=== PATIENT | male | born 1930 | race Caucasian/White ===

== ENCOUNTER 2017-12-22 22:39 | Observation (INO) ==
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
[2017-12-23 00:52] LABS: Amphetamine Screen,Urine Neg (Neg); Barbiturate Screen,Urine Neg (Neg); Cannabinoid Screen,Urine Neg (Neg); Cocaine Screen,Urine Neg (Neg); Opiate Screen,Urine Neg (Neg)
[2017-12-23 00:56] LABS: Baso # (Auto) 0.2 th/mm3 (0.0-0.2); Baso % (Auto) 2.8 % (0.0-2.0); Eos % (Auto) 0.2 % (0.0-4.0); Hemoglobin 11.7 gm/dL (13.0-17.0); Lymph # (Auto) 1.1 th/mm3 (1.0-4.8); Lymph % (Auto) 13.5 % (9.0-44.0); Mean Corpuscular HGB Conc 33.5 % (32.0-36.0); Mean Corpuscular Hemoglobin 29.7 pg (27.0-34.0); Mean Corpuscular Volume 88.7 fL (80.0-100.0); Mean Platelet Volume 8.5 fL (7.0-11.0); Mono # (Auto) 0.6 th/mm3 (0.0-0.9); Mono % (Auto) 7.5 % (0.0-8.0); Neut # (Auto) 6.3 th/mm3 (1.8-7.7); Platelet Count 275 th/mm3 (150-450); Red Blood Count 3.95 mil/mm3 (4.50-5.90); Red Cell Distribution Width 14.5 % (11.6-17.2); White Blood Count 8.3 th/mm3 (4.0-11.0)
[2017-12-23 01:06] LABS: Alanine Aminotransferase 13 U/L (12-78); Albumin 3.8 g/dL (3.4-5.0); Anion Gap 5 meq/L (5-15); Aspartate Aminotransferase 11 U/L (15-37); Blood Urea Nitrogen 20 mg/dL (7-18); Calcium 8.8 mg/dL (8.5-10.1); Carbon Dioxide 30.2 meq/L (21.0-32.0); Chloride 109 meq/L (98-107); Glomerular Filtration Rate 58 mL/min (>89); Glucose,Random 94 mg/dL (74-106); Potassium 3.7 meq/L (3.5-5.1); Sodium 144 meq/L (136-145)
[2017-12-23 01:16] LABS: Alkaline Phosphatase 83 U/L (45-117); Thyroid Stimulating Hormone 0.261 uIU/mL (0.358-3.740); Total Protein 7.3 g/dL (6.4-8.2)
[2017-12-23] MEDS ORDERED: LORazepam 1 MG Tablet PO ONE (01:18)
[2017-12-23] MEDS ORDERED: amLODIPine 10 MG Tablet PO ONE (15:05)
--- NOTE | 2017-12-23 16:46 | ED ---
HPI - Psych - General Source: patient, family Mode of arrival: other (in soft restraints) Limitations: altered mental status - History of Present Illness MD complaint: altered mental status - General Chief Complaint: Psychiatric Symptoms Stated Complaint: psych eval/[facility] Time Seen by Provider: 12/23/17 14:49 - History of Present Illness HPI Narrative: This patient is an elderly, , male who presents under Galvez act this facility. The Galvez act was requested by his daughter. The patient resides with his however, she recently fell and fractured her hip. She is a patient this facility. Her daughter moved into the house to care for him but states that he is be becoming aggressive at night. She no longer feels safe with him there and would like him placed. This gentleman has not been previously seen at this facility. Reviewed electronic medical record, labs, discuss case with staff. Patient was evaluated in his room in the ED main. He was found lying on his stretcher with his wrists in soft 2 point restraints. Staff advises was due to his incessant wandering and his fall risk. Patient is awake and alert however he was oriented to self only. His speech is clear and logical however he becomes disorganized and confused easily. He is grossly confused and unable to provide much history. He was able to tell me that he spent time in the [employer] however, he is unable to relay what he did for a living stating, "I do not remember". His mood and affect are anxious. (Mariaelena Torrez) - Related Data Home Medications Medication Instructions Recorded Confirmed Unable to Obtain Home Meds 12/22/17 12/22/17 Allergies Allergy/AdvReac Type Severity Reaction Status Date / Time No Allergy Information Allergy Unverified 12/22/17 23:20 Available [facility] - History History Provided By: Law Enforcement - Medical History Medical History: Medical History (Last Updated 12/22/17 @ 23:16 by Adrienne Franco RN) Medical history unknown Surgical history unknown - Tobacco History Smoking Status: Cognitive impairment - Alcohol History How Often Do You Have a Drink Containing Alcohol: Unable to Obtain - Travel History Recent Travel in the [place] Within the Last 8 Weeks: No Recent Travel Out of the Country Within the Last 8 Weeks: No - Immunization History Tetanus Immunization: Unable to Assess Hx Influenza Vaccine This Season: Unable to Assess Mental Status Examination Appearance: Disheveled Consciousness: Alert Orientation: Person Motor Activity: Other Speech: Slow Language: Other (In adequate, disorganized at times) Fund of Knowledge: Poor Attention and Concentration: Inadequate Memory: Impaired Mood: Anxious Affect: Anxious Thought Process & Associations: Disorganized Thought Content: Other (Grossly confused) Hallucination Type: None Delusion Type: None Suicidal Ideation: No Suicidal Plan: No Suicidal Intention: No Homicidal Ideation: No Homicidal Plan: No Homicidal Intention: No Insight: Poor Judgment: Poor Initial Documented Vital Signs Temperature 97.7 F 12/22/17 23:14 Pulse Rate 60 12/22/17 23:14 Respiratory Rate 18 12/22/17 23:14 Blood Pressure 133/70 12/22/17 23:14 Pulse Oximetry 98 12/22/17 23:14 Last Documented Vital Signs Temperature 98.6 F 12/23/17 04:49 Pulse Rate 44 L 12/23/17 15:51 Respiratory Rate 18 12/23/17 15:51 Blood Pressure 205/84 H 12/23/17 15:51 Pulse Oximetry 98 12/23/17 15:51 MDM - Psych - Diagnosis (1) Dementia Status: Acute - Lab Data Result diagrams: 12/23/17 00:00 12/23/17 00:00 - MDM Narrative Medical decision making narrative: There is no indication that this patient is internally stimulated or in any way suffering from a mental illness. 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 It is unlikely that he receive any therapeutic benefit from an inpatient admission at this facility. I presented this patient to Dr. Castrejon, who saw this patient, concurred with my assessment and has lifted the Galvez act. Medical staff will work on appropriate placement in a dementia unit. (Mariaelena Torrez) - Lab Data Lab Results 12/23/17 12/23/17 12/23/17 Range/Units 00:00 00:00 00:00 WBC 8.3 (4.0-11.0) th/mm3 RBC 3.95 L (4.50-5.90) mil/mm3 Hgb 11.7 L (13.0-17.0) gm/dL Hct 35.0 L (39.0-51.0) % MCV 88.7 (80.0-100.0) fL MCH 29.7 (27.0-34.0) pg MCHC 33.5 (32.0-36.0) % RDW 14.5 (11.6-17.2) % Plt Count 275 (150-450) th/mm3 MPV 8.5 (7.0-11.0) fL Neut % (Auto) 76.0 H (16.0-70.0) % Lymph % (Auto) 13.5 (9.0-44.0) % [place] % (Auto) 7.5 (0.0-8.0) % Eos % (Auto) 0.2 (0.0-4.0) % Baso % (Auto) 2.8 H (0.0-2.0) % Neut # (Auto) 6.3 (1.8-7.7) th/mm3 Lymph # (Auto) 1.1 (1.0-4.8) th/mm3 [place] # (Auto) 0.6 (0.0-0.9) th/mm3 Eos # (Auto) 0.0 (0.0-0.4) th/mm3 Baso # (Auto) 0.2 (0.0-0.2) th/mm3 WBC Differential . Differential Comment Auto diff final Sodium 144 (136-145) meq/L Potassium 3.7 (3.5-5.1) meq/L Chloride 109 H (98-107) meq/L Carbon Dioxide 30.2 (21.0-32.0) meq/L Anion Gap 5 (5-15) meq/L BUN 20 H (7-18) mg/dL Creatinine 1.10 (0.60-1.30) mg/dL Estimated GFR 58 L (>89) mL/min Random Glucose 94 (74-106) mg/dL Calcium 8.8 (8.5-10.1) mg/dL Total Bilirubin 0.4 (0.2-1.0) mg/dL AST 11 L (15-37) U/L ALT 13 (12-78) U/L Alkaline Phosphatase 83 (45-117) U/L Total Protein 7.3 (6.4-8.2) g/dL Albumin 3.8 (3.4-5.0) g/dL TSH 0.261 L (0.358-3.740) uIU/mL Urine Opiates Screen Neg (Neg) Ur Barbiturates Screen Neg (Neg) Ur Amphetamines Screen Neg (Neg) U Benzodiazepines Scrn Neg (Neg) Urine Cocaine Screen Neg (Neg) U Cannabinoids Screen Neg (Neg) Serum Alcohol Less than 3 (0-5) mg/dL
[2017-12-23] MEDS ORDERED: Metoprolol Tartrate 25 MG Tablet PO ONE (17:40)
[2017-12-23] MEDS ORDERED: Temazepam 15 MG Capsule PO PRN (22:45)
[2017-12-23] MEDS ORDERED: Bisacodyl 10 MG Supp RECTAL PRN (22:45)
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
[2017-12-23] MEDS ORDERED: Haloperidol Inj 5 MG/ML Ampul IM ONE (23:49)
[2017-12-24] MEDS: Senna/Docusate Sodium 8.6/50 MG Tablet PO SCH ×2 (08:13→20:29)
[2017-12-24 09:01] LABS: Baso % (Auto) 0.4 % (0.0-2.0); Eos % (Auto) 0.4 % (0.0-4.0); Hematocrit 37.7 % (39.0-51.0); Hemoglobin 12.8 gm/dL (13.0-17.0); Lymph # (Auto) 1.6 th/mm3 (1.0-4.8); Lymph % (Auto) 15.8 % (9.0-44.0); Mean Corpuscular HGB Conc 33.9 % (32.0-36.0); Mean Corpuscular Hemoglobin 29.8 pg (27.0-34.0); Mean Corpuscular Volume 88.2 fL (80.0-100.0); Mean Platelet Volume 7.9 fL (7.0-11.0); Mono # (Auto) 0.8 th/mm3 (0.0-0.9); Mono % (Auto) 7.9 % (0.0-8.0); Neut # (Auto) 7.9 th/mm3 (1.8-7.7); Neut % (Auto) 75.5 % (16.0-70.0); Platelet Count 287 th/mm3 (150-450); Red Blood Count 4.28 mil/mm3 (4.50-5.90); Red Cell Distribution Width 14.7 % (11.6-17.2); White Blood Count 10.4 th/mm3 (4.0-11.0)
[2017-12-24 09:29] LABS: Alanine Aminotransferase 14 U/L (12-78); Albumin 3.7 g/dL (3.4-5.0); Alkaline Phosphatase 86 U/L (45-117); Anion Gap 10 meq/L (5-15); Aspartate Aminotransferase 22 U/L (15-37); Blood Urea Nitrogen 14 mg/dL (7-18); Calcium 9.3 mg/dL (8.5-10.1); Carbon Dioxide 25.8 meq/L (21.0-32.0); Chloride 106 meq/L (98-107); Glomerular Filtration Rate 63 mL/min (>89); Glucose,Random 99 mg/dL (74-106); Potassium 3.3 meq/L (3.5-5.1); Sodium 142 meq/L (136-145); Total Protein 7.4 g/dL (6.4-8.2)
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
[2017-12-24] MEDS: Haloperidol Inj 5 MG/ML Ampul IM PRN (21:24)
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
[2017-12-25] MEDS: Senna/Docusate Sodium 8.6/50 MG Tablet PO SCH ×2 (10:11→20:05)
[2017-12-25] MEDS: QUEtiapine 25 MG Tablet PO SCH ×2 (14:25→20:05)
[2017-12-26] MEDS: Senna/Docusate Sodium 8.6/50 MG Tablet PO SCH ×2 (09:22→20:19)
[2017-12-26] MEDS: QUEtiapine 25 MG Tablet PO SCH ×3 (09:23→20:20)
--- NOTE | 2017-12-26 10:17 | P.PN ---
Subjective Interval history: Follow-up visit dementia with aggressive behavior. Patient seen and examined today. Reports she is doing okay. Patient appears to be more calm. As per nursing, states that patient is more receptive to instructions compared to previous days. Started on Seroquel yesterday. Physical Exam Vital signs: Vital Signs 12/25/17 11:51 12/25/17 12:00 12/25/17 15:35 Temperature 97.7 F 97.5 F L 97.6 F Pulse Rate 70 70 85 Respiratory Rate 18 16 18 Blood Pressure 140/81 114/56 L 164/77 H Pulse Oximetry 97 99 96 12/25/17 20:00 12/26/17 04:00 12/26/17 08:00 Temperature 98.2 F 98.2 F 97.9 F Pulse Rate 80 115 H 69 Respiratory Rate 16 18 16 Blood Pressure 156/65 H 129/86 193/88 H Pulse Oximetry 98 96 97 Intake & Output 12/25/17 12/26/17 12/26/17 18:59 06:59 18:59 Other: # Voids 3 Date of Last Bowel Movement 12/24/17 12/24/17 Narrative: GENERAL: This is a well-nourished, well-developed patient, in no apparent distress. SKIN: Warm and dry. HEENT: Normocephalic. Pupils equal round and reactive. Nose without bleeding. Airway patent. NECK: Trachea midline. Supple. CARDIOVASCULAR: Regular rate and rhythm without murmurs, gallops, or rubs. RESPIRATORY: Clear to auscultation. Breath sounds equal bilaterally. No wheezes , rales, or rhonchi. GASTROINTESTINAL: Abdomen soft, non-tender, nondistended. Bowel Sounds normoactive x4. MUSCULOSKELETAL: Extremities without clubbing, cyanosis, or edema. NEUROLOGICAL: Awake and alert. Confuse. Moves all extremities. Normal speech. Results - Labs CBC & Chem 7: 12/24/17 08:10 12/24/17 08:10 - Procedures None Assessment and Plan - Assessment (1) Total self-care deficit Code(s): R41.89 - Other symptoms and signs involving cognitive functions and awareness Status: Acute (2) Dementia Code(s): F03.90 - Unspecified dementia without behavioral disturbance Status: Acute - Plan Elderly white male (Jhon Caicedo [birth year]) w/ a PMH of Dementia who was initially brought to the ER under [place] Act for violent behavior against Daughter. Dementia: w/ violent behavior, initially under [place] Act for threatening to kill his daughter if she didn't leave his house -S/p eval by Psych, not found to have underlying psych component, recommendation for locked dementia unit, Gal[place] Act lifted. -Pt remains confused, agitated at times. Wanders. Improving -Fall Precautions -Off restraints -Seroquel BID and QHS -Namenda Total Self Care Deficit: Pt unable to care for self, previously living with however currently hospitalized w/ hip fracture, -Case Management assisting w/ placement for >24hrs, await placement. -Needs [facility] placement DVT Prophylaxis: SCD/Teds Code Status: Full Code Discussed Condition With: Nursing, Dr. Julio, CM Discharge Planning: Plan to DC to dementia unit [facility] . Awaiting placement, CM following.
[2017-12-26] MEDS: Haloperidol Inj 5 MG/ML Ampul IM PRN (22:18)
[2017-12-27] MEDS: QUEtiapine 25 MG Tablet PO SCH ×3 (08:38→20:38)
[2017-12-27] MEDS: Senna/Docusate Sodium 8.6/50 MG Tablet PO SCH ×2 (08:38→20:38)
--- NOTE | 2017-12-27 11:25 | P.PN ---
Subjective Interval history: Follow up for dementia, awaiting placement. The patient is seen sitting upright in bedside chair, eating breakfast. He has no specific medical complaints including no fevers/chills, headache, lightheadedness, chest pain, shortness of breath, abdominal or urinary complaints. He is tolerating oral intake. He is oriented to self, says the year is "18" but says he is in [place]. No acute events overnight. Physical Exam Vital signs: Vital Signs 12/26/17 12:00 12/26/17 16:00 12/27/17 03:42 Temperature 97.8 F 97.8 F 97.9 F Pulse Rate 80 64 78 Respiratory Rate 16 16 16 Blood Pressure 146/66 H 121/64 128/63 Pulse Oximetry 95 98 98 12/27/17 08:00 Temperature 97.7 F Pulse Rate 92 H Respiratory Rate 18 Blood Pressure 115/55 L Pulse Oximetry 95 Intake & Output 12/26/17 12/27/17 12/27/17 18:59 06:59 18:59 Weight 71.809 kg Other: # Voids 3 Date of Last Bowel Movement 12/24/17 12/24/17 12/27/17 Narrative: GENERAL: Well-nourished, well-developed pleasantly confused elderly male patient in [facility]. SKIN: Warm and dry. No rash. HEENT: Normocephalic. Atraumatic. Pupils equal and round. Mucous membranes pink and moist. NECK: Supple. Trachea midline. CARDIOVASCULAR: Regular rate and rhythm. 3/6 systolic murmur noted. RESPIRATORY: No accessory muscle use. Clear to auscultation. Breath sounds equal bilaterally. GASTROINTESTINAL: Abdomen soft, non-tender, nondistended. Normoactive bowel sounds x4. MUSCULOSKELETAL: No obvious deformities. Extremities without clubbing, cyanosis , or edema. NEUROLOGICAL: Awake and alert. No obvious cranial nerve deficits. Motor grossly within normal limits. Moving all extremities spontaneously. Normal speech. PSYCHIATRIC: Appropriate mood and affect; insight and judgment limited. Results - Labs CBC & Chem 7: 12/24/17 08:10 12/24/17 08:10 - Procedures None Assessment and Plan - Assessment (1) Total self-care deficit Code(s): R41.89 - Other symptoms and signs involving cognitive functions and awareness Status: Acute (2) Dementia Code(s): F03.90 - Unspecified dementia without behavioral disturbance Status: Acute - Plan Elderly white male (Jhon Caicedo [birth year]) w/ a PMH of Dementia who was initially brought to the ER under [place] Act for violent behavior against Daughter. Dementia: w/ violent behavior, initially under [place] Act for threatening to kill his daughter if she didn't leave his house -S/p eval by Psych, not found to have underlying psych component, recommendation for locked dementia unit, [place] Act lifted. -Pt remains confused, however agitation much improved, has been off of restraints, likes to ambulate the unit under supervision of the nurses -Fall Precautions -Continue Namenda and Seroquel BID and QHS -Speech therapy for cognitive evaluation -Case management consulted to assist with placement Total Self Care Deficit: Pt unable to care for self, previously living with however currently hospitalized w/ hip fracture -Case Management assisting w/ placement DVT Prophylaxis: SCD/Teds; patient is ambulatory Discharge Planning: Awaiting placement.
--- NOTE | 2017-12-27 16:50 | P.DS ---
Date of admission: 12/23/17 22:43 Primary care physician: UNKNOWN Anticipated date of discharge: 12/27/17 Brief History from admission: This is an elderly white male (Jhon Caicedo [birth year]) w/ a PMH of Dementia who was initially brought to the ER under [place] Act for violent behavior against Daughter. Per report, pt lives w/ , however pt's currently hospitalized w/ hip fracture. Daughter moved in with patient to care for him when he became violent, threatening to kill her if she didn't leave. 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 Case Management has been assisting w/ trying to find pt placement, now over 24hrs and we were asked to admit. Pt without complaints. Currently in restraints. DS: Diagnosis - Discharge Diagnosis (1) Total self-care deficit Status: Acute (2) Dementia Status: Acute DS: Medications - Discharge Medications Prescriptions: memantine [Namenda] 10 mg PO DAILY #30 tab quetiapine 25 mg PO BID@0900,1200 #60 tab quetiapine 50 mg PO HS #60 tab DS: Summary Hospital Course: Elderly white male (Jhon Caicedo [birth year]) w/ a PMH of Dementia who was initially brought to the ER under [place] Act for violent behavior against Daughter. Dementia: w/ violent behavior, initially under [place] for threatening to kill his daughter if she didn't leave his house. S/p eval by Psych, not found to have underlying psych component, recommendation for locked dementia unit, [place] Act lifted. Pt remains confused, however agitation much improved, has been off of restraints, likes to ambulate the unit under supervision of the nurses. Fall Precautions. Continue Namenda and started on Seroquel 25mg @0900, 1200, and 50mg at bedtime. Case management consulted, arranged placement in [place]. Total Self Care Deficit: Pt unable to care for self, previously living with however currently hospitalized w/ hip fracture. Case Management consulted, patient being discharged to [facility]. - Time Spent with Patient Total time spent providing and/or coordinating discharge services: Greater than 30 minutes Exam Vital signs: Vital Signs 12/27/17 03:42 12/27/17 08:00 12/27/17 11:48 Temperature 97.9 F 97.7 F 98.0 F Pulse Rate 78 92 H 87 Respiratory Rate 16 18 18 Blood Pressure 128/63 115/55 L 119/69 Pulse Oximetry 98 95 99 12/27/17 16:00 Temperature 98.0 F Pulse Rate 90 Respiratory Rate 18 Blood Pressure 142/65 H Pulse Oximetry 96 Intake & Output 12/26/17 12/27/17 12/27/17 18:59 06:59 18:59 Weight 71.809 kg Other: # Voids 3 Date of Last Bowel Movement 12/24/17 12/24/17 12/27/17 Narrative: GENERAL: Well-nourished, well-developed pleasantly confused elderly male patient in [facility]. SKIN: Warm and dry. No rash. HEENT: Normocephalic. Atraumatic. Pupils equal and round. Mucous membranes pink and moist. NECK: Supple. Trachea midline. CARDIOVASCULAR: Regular rate and rhythm. 3/6 systolic murmur noted. RESPIRATORY: No accessory muscle use. Clear to auscultation. Breath sounds equal bilaterally. GASTROINTESTINAL: Abdomen soft, non-tender, nondistended. Normoactive bowel sounds x4. MUSCULOSKELETAL: No obvious deformities. Extremities without clubbing, cyanosis , or edema. NEUROLOGICAL: Awake and alert. No obvious cranial nerve deficits. Motor grossly within normal limits. Moving all extremities spontaneously. Normal speech. PSYCHIATRIC: Appropriate mood and affect; insight and judgment limited. Results Procedures completed during hospitalization: None Discharge Plan - Discharge Disposition Patient Disposition: [facility] - Discharge Condition Condition: Stable - Discharge Order Discharge Orders: Discharge Order (Routine); Ordered 12/27/17 Ordered By: Jody Lawson - Discharge Details Anticipated Discharge Date: 12/27/17 - Physicians Team Primary Care Provider: UNKNOWN, Attending Provider: Ric Delacruz
[2017-12-28] MEDS: Senna/Docusate Sodium 8.6/50 MG Tablet PO SCH (08:08)
[2017-12-28] MEDS: QUEtiapine 25 MG Tablet PO SCH ×2 (08:08→11:58)
--- NOTE | 2017-12-28 08:58 | P.PN ---
Subjective Interval history: Follow up for dementia, awaiting placement. The patient is seen sitting upright in his bed this morning, very pleasant and smiling. Oriented to self and president Della. Says he is in [place] and the year is 2014. He has no medical complaints including no headache, lightheadedness, chest pain, shortness of breath, or abdominal complaints. He is tolerating oral intake. He is ambulating the unit without difficulty. Physical Exam Vital signs: Vital Signs 12/27/17 11:48 12/27/17 16:00 12/27/17 22:40 Temperature 98.0 F 98.0 F Pulse Rate 87 90 97 H Respiratory Rate 18 18 Blood Pressure 119/69 142/65 H 143/73 H Pulse Oximetry 99 96 96 12/27/17 23:12 12/28/17 00:00 12/28/17 00:15 Temperature 98.0 F Pulse Rate 97 H 69 72 Respiratory Rate 17 16 14 Blood Pressure 143/73 H 121/83 137/75 Pulse Oximetry 96 96 97 12/28/17 01:20 12/28/17 01:22 12/28/17 02:18 Temperature 98.1 F 98.1 F 98.0 F Pulse Rate 70 82 65 Respiratory Rate 16 15 16 Blood Pressure 120/69 137/63 145/73 H Pulse Oximetry 95 96 94 L 12/28/17 04:00 12/28/17 08:00 Temperature 98.0 F 97.4 F L Pulse Rate 67 77 Respiratory Rate 14 18 Blood Pressure 110/62 195/91 H Pulse Oximetry 95 Intake & Output 12/27/17 12/28/17 12/28/17 18:59 06:59 18:59 Output Total 350 / 350 Balance -350 / -350 Weight 71.809 kg Output: Urine 350 / 350 Other: # Voids 1 Date of Last Bowel Movement 12/27/17 Narrative: GENERAL: Well-nourished, well-developed pleasantly confused elderly male patient in [facility]. SKIN: Warm and dry. No rash. HEENT: Normocephalic. Atraumatic. Pupils equal and round. Mucous membranes pink and moist. CARDIOVASCULAR: Regular rate and rhythm. 3/6 systolic ejection murmur noted. RESPIRATORY: No accessory muscle use. Clear to auscultation. Breath sounds equal bilaterally. GASTROINTESTINAL: Abdomen soft, non-tender, nondistended. Normoactive bowel sounds x4. MUSCULOSKELETAL: No obvious deformities. Extremities without clubbing, cyanosis , or edema. NEUROLOGICAL: Awake and alert. No obvious cranial nerve deficits. Motor grossly within normal limits. Moving all extremities spontaneously. Normal speech. PSYCHIATRIC: Pleasantly confused mood; insight and judgment limited. Results - Labs CBC & Chem 7: 12/24/17 08:10 12/24/17 08:10 Laboratory Results - last 24 hr 12/27/17 22:43 POC Glucose 127 H - Procedures None Assessment and Plan - Assessment (1) Total self-care deficit Code(s): R41.89 - Other symptoms and signs involving cognitive functions and awareness Status: Acute (2) Dementia Code(s): F03.90 - Unspecified dementia without behavioral disturbance Status: Acute - Plan Elderly white male (Jhon Caicedo [birth year]) w/ a PMH of Dementia who was initially brought to the ER under [place] Act for violent behavior against Daughter. Dementia: w/ violent behavior, initially under [place] Act for threatening to kill his daughter if she didn't leave his house -S/p eval by Psych, not found to have underlying psych component, recommendation for locked dementia unit, Gal[place] Act lifted. -Pt remains confused, however agitation much improved, has been off of restraints and pleasant, likes to ambulate the unit under supervision of the nurses -Fall Precautions -Continue Aricept, Namenda, and Seroquel BID and QHS -Speech therapy for cognitive evaluation -Case management consulted to assist with placement Total Self Care Deficit: Pt unable to care for self, previously living with however currently hospitalized w/ hip fracture -Case Management assisting w/ placement DVT Prophylaxis: SCD/Teds; patient is ambulatory Discharge Planning: Awaiting placement.
[2017-12-28 11:59] VITALS: TEMP 97.7; O2SAT 97
--- NOTE | 2017-12-28 14:11 | XR ---
EXAM DATE: 12/28/2017 1:31 PM EDT AGE/SEX: 89 years / Male INDICATIONS: Neck pain. CLINICAL DATA: This is the patient's initial encounter. Patient reports that signs and symptoms have been present for 1 day and indicates a pain score of Nonresponsive. MEDICAL/SURGICAL HISTORY: Non-responsive. Non-responsive. COMPARISON: No prior exams available for comparison. FINDINGS: There is slight anterolisthesis of C4 relative to C5. Slight reversal of normal cervical lordosis. Th ere is fairly severe degenerative change in the lower cervical spine with significant disc space narr owing and endplate osteophyte formation at C4-5, C5-6, C6-7 levels. There is no definite evidence of fracture or destructive change. No abnormal prevertebral swelling is noted. CONCLUSION: Significant degenerative changes. No definite acute bony findings. Electronically signed by: Lalo Martinez MD 12/28/2017 2:10 PM EDT
[2017-12-28 15:57] VITALS: PULSE 73; RESP 16
[2017-12-28 17:04] VITALS: BP 133/80
== END 2017-12-28 18:42 ==
LOC: NEDA 22:39 → NEPHCDU 22:39 → NEPD 22:39 → NEPHCDU 12-24 03:20
PROVIDERS: ADMIT Internal Medicine; ATTEND Internal Medicine